=== PATIENT | male | born 1960 | race Caucasian/White ===

== ENCOUNTER 2016-12-02 16:28 | Emergency (ER) | payer OTHER ==
[~2016-12-02] VITALS: Ht 165.1 cm; Wt 65.8 kg
[~2016-12-02 16:28] MED LIST: AMLODIPINE BESY10 MG PO; ASPIRIN325 PO; ASPIRIN81 M2 PO; ATENOLOL 50MG T50 MG PO; ATIVAN0.5 MG PO; AUGMENTIN 875875 MG PO; CIPROFLOXACIN500 M1 PO; FLAGYL500 MG PO; HYDROCHLOROTH12.5 M1 PO; HYDROCHLOROTHIA25 M1 PO; LEVAQUIN 750 M750 MG PO; LISINOPRIL10 MG PO; LISINOPRIL40 MG PO; NO HOME MEDS; NOHOMEMEDICATIONS; NORCO 5-325 TA1 EACH PO; NORVASC 5 MG TAB5 MG PO; NORVASC10 MG PO; ZOCOR 20 MG TAB20 M1 PO
[2016-12-02 17:07] LABS: ABSOLUTE NEUTROPHILS 4.7 thou/uL (1.4-8.2); BASOPHILS 1.2 % (0.0-2.0); EOSINOPHILS 1.7 % (0.0-3.0); HEMATOCRIT 39.9 % (42.0-52.0); HEMOGLOBIN 13.6 gm/dL (14.0-18.0); LYMPHOCYTES 29.5 % (24.0-44.0); MCH 29.3 pg (26.0-34.0); MCHC 34.1 g/dL (28.0-37.0); MONOCYTES 5.8 % (1.0-8.0); PLATELET COUNT 227 thou/uL (150-400); POLYS 61.8 % (36.0-66.0); RBC 4.64 mil/uL (4.50-6.00); RDW 14.6 % (10.5-14.5); WBC 7.6 thou/uL (4.0-11.0)
[2016-12-02 17:10] LABS: MANUAL DIFF NO
[2016-12-02 17:14] LABS: CALCIUM 8.9 mg/dL (8.5-10.1); CREATININE 1.1 mg/dL (0.7-1.3)
[2016-12-02 17:19] LABS: ALBUMIN 4.4 g/dL (3.4-5.0); TOTAL BILIRUBIN 0.9 mg/dL (<0.1-1.0); TOTAL PROTEIN 7.8 g/dL (6.4-8.2)
[2016-12-02] MEDS ORDERED: CIPRO500 MG PO (17:58)
[2016-12-02] MEDS ORDERED: FLAGYL500 MG PO (17:58)
[2016-12-02] MEDS ORDERED: ZOFRAN ODT4 M1 PO (17:59)
[2016-12-02 18:22] VITALS: BP 145/82
== END 2016-12-02 17:59 | disposition home or self-care (01) ==
LOC: ER 16:28
PROVIDERS: Physician Assistant
DX: K57.92 Diverticulitis of intestine, part unspecified, without perforation or abscess without bleeding (principal); I10 Essential (primary) hypertension; F10.99 Alcohol use, unspecified with unspecified alcohol-induced disorder

== ENCOUNTER 2018-01-12 18:35 | Emergency (ER) | payer OTHER ==
[~2018-01-12] VITALS: Ht 167.6 cm; Wt 70.3 kg
--- NOTE | ~2018-01-12 | EKG ---
[address] [address] ELECTROCARDIOGRAM REPORT Name: BETHEL VIZCAINO [id number] Admission: 01/12/18 Attend Phys: Discharge: 01/12/18 Date of : 58 Report #: [id number] THIS REPORT FOR: //name// [facility] ED Test Date: 2018-01-12 Test Time: 18:49:22 Pat Name: ECTORJED VIZCAINO Department: Room: Gender: Legal Summer Intern: [facility] : 1960 Requested By: Brigid Campbell Order Number: [id number] MD: Uriah Sneed Measurements Intervals [place] Rate: 86 P: 37 SC: 145 QRS: 2 QRSD: 101 T: 11 QT: 373 QTc: 446 Interpretive Statements Sinus rhythm Compared to ECG 11/25/2017 20:39:48 ST (T wave) deviation no longer present Electronically Signed On 01-15-2018 14:58:47 CDT by Uriah Sneed [email or web address] <ELECTRONICALLY SIGNED> By: Uriah Sneed MD 01/15/18 1458 D: 09/1848 48 Uriah Sneed MD /SCOTT
[~2018-01-12 18:35] MED LIST changes: +ANTIVERT25 MG PO; +CIPRO500 MG PO; +COZAAR 50 MG TA50 M2 PO; +ZOCOR20 MG PO; +ZOFRAN ODT4 M1 PO
[2018-01-12 20:22] LABS: ABSOLUTE NEUTROPHILS 8.9 thou/uL (1.4-8.2); BASOPHILS 0.6 % (0.0-2.0); EOSINOPHILS 1.8 % (0.0-3.0); HEMATOCRIT 42.2 % (42.0-52.0); HEMOGLOBIN 14.4 gm/dL (14.0-18.0); LYMPHOCYTES 20.3 % (24.0-44.0); MCH 29.2 pg (26.0-34.0); MCHC 34.2 g/dL (28.0-37.0); MCV 85.4 fL (80.0-100.0); MONOCYTES 8.7 % (1.0-8.0); PLATELET COUNT 239 thou/uL (150-400); POLYS 68.6 % (36.0-66.0); RBC 4.95 mil/uL (4.50-6.00); RDW 14.3 % (10.5-14.5); WBC 12.9 thou/uL (4.0-11.0)
[2018-01-12 20:27] LABS: CALCIUM 9.1 mg/dL (8.5-10.1); CREATININE 1.5 mg/dL (0.7-1.3); POTASSIUM 3.7 mmol/L (3.5-5.1)
[2018-01-12 20:33] LABS: MAGNESIUM 2.2 mg/dL (1.8-2.4)
[2018-01-12] MEDS ORDERED: VALIUM5 MG PO (22:42)
[2018-01-12 23:02] VITALS: BP 127/74
== END 2018-01-12 23:03 | disposition home or self-care (01) ==
LOC: ER 18:35
PROVIDERS: Emergency Medicine
DX: R42 Dizziness and giddiness (principal); I10 Essential (primary) hypertension; Z88.8 Allergy status to other drugs, medicaments and biological substances

== ENCOUNTER 2020-02-27 14:53 | Emergency (ER) | payer OTHER ==
[~2020-02-27] VITALS: Ht 167.6 cm; Wt 77.1 kg
[~2020-02-27 14:53] MED LIST changes: +VALIUM5 MG PO
[2020-02-27] MEDS ORDERED: CARVEDILOL12.5 MG PO (14:57)
[2020-02-27] MEDS ORDERED: K-DUR 20 MEQ T20 MEQ PO (14:57)
[2020-02-27] MEDS ORDERED: FUROSEMIDE 40 M40 M1 PO (14:57)
[2020-02-27] MEDS ORDERED: ELIQUIS5 MG PO (14:57)
--- NOTE | 2020-02-27 15:05 | EKG ---
[facility] [place] [address] ELECTROCARDIOGRAM REPORT Name: BETHEL VIZCAINO Room #: PRE M..#: [id number] Admission: Attend Phys: Discharge: Date of : 58 Report #: [id number] THIS REPORT FOR: cc: Alex You MD,Cayetano GARCIA [facility] ~ THIS REPORT FOR: //name// [facility] ED Test Date: 2020-02-27 Test Time: 15:58:20 Pat Name: BETHEL VIZCAINO Department: Room: Gender: M Wrapper Rewinder: [facility] : 1960 Requested By: Med Hawkins Order Number: [id number] MD: Cayetano Mendoza Measurements Intervals [place] Rate: 60 P: 33 GA: 177 QRS: -5 QRSD: 105 T: -13 QT: 419 QTc: 419 Interpretive Statements Sinus rhythm/artifact Consider left atrial enlargement Abnormal R-wave progression, late transition Borderline T abnormalities, lateral leads Compared to ECG 01/12/2018 18:49:22 T-wave abnormality now present Electronically Signed On 02-27-2020 15:05:38 OCCUPATIONAL MEDICINE OFFICER by Cayetano Mendoza [email or web address] <ELECTRONICALLY SIGNED> By: Cayetano Mendoza MD, FACC 02/27/20 1505 1558 1558 Cayetano Mendoza MD, [facility] /EPI
[2020-02-27 15:51] LABS: ABSOLUTE NEUTROPHILS 4.4 thou/uL (1.4-8.2); BASOPHILS 0.8 % (0.0-2.0); HEMATOCRIT 40.9 % (42.0-52.0); HEMOGLOBIN 13.3 gm/dL (14.0-18.0); MCH 27.8 pg (26.0-34.0); MCHC 32.5 g/dL (28.0-37.0); MCV 85.5 fL (80.0-100.0); MONOCYTES 6.3 % (1.0-8.0); PLATELET COUNT 222 thou/uL (150-400); POLYS 63.9 % (36.0-66.0); RBC 4.79 mil/uL (4.50-6.00); RDW 15.5 % (10.5-14.5); WBC 6.8 thou/uL (4.0-11.0)
[2020-02-27 16:00] LABS: ANION GAP 14 mmol/L (7-16); BUN 16 mg/dL (7-18); CALCIUM 8.5 mg/dL (8.5-10.1); CHLORIDE 109 mmol/L (98-107); CO2 22 mmol/L (21-32); CREATININE 1.2 mg/dL (0.7-1.3); GLUCOSE 147 mg/dL (74-106); POTASSIUM 3.8 mmol/L (3.5-5.1); SODIUM 145 mmol/L (136-145)
[2020-02-27 16:10] LABS: ALBUMIN 4.4 g/dL (3.4-5.0); SGOT 16 U/L (15-37); SGPT 18 U/L (30-65); TOTAL BILIRUBIN 1.2 mg/dL (0.2-1.0); TOTAL PROTEIN 7.9 g/dL (6.4-8.2); TROPONIN-I <0.06 ng/mL (<0.06)
[2020-02-27 16:23] LABS: APTT 35.9 Seconds (24.5-32.8); INR 1.1; PROTIME 11.5 Seconds (9.3-11.4)
[2020-02-27] MEDS ORDERED: ROBAXIN 750 MG750 MG PO (17:09)
[2020-02-27] MEDS ORDERED: PREDNISONE 20 M20 MG PO (17:09)
[2020-02-27 17:27] VITALS: BP 129/70
== END 2020-02-27 17:25 | disposition home or self-care (01) ==
LOC: ER 14:53
PROVIDERS: Emergency Medicine
DX: R07.89 Other chest pain (principal); I48.20 Chronic atrial fibrillation, unspecified; M25.512 Pain in left shoulder; I10 Essential (primary) hypertension; Z86.73 Personal history of transient ischemic attack (TIA), and cerebral infarction without residual deficits; Z79.899 Other long term (current) drug therapy; Z88.8 Allergy status to other drugs, medicaments and biological substances

== ENCOUNTER 2021-05-16 09:53 | Inpatient (IN) | payer OTHER ==
[~2021-05-16] VITALS: Ht 167.6 cm; Wt 81.6 kg
[~2021-05-16 09:53] MED LIST changes: +CARVEDILOL12.5 MG PO; +ELIQUIS5 MG PO; +FUROSEMIDE 40 M40 M1 PO; +K-DUR 20 MEQ T20 MEQ PO; +PREDNISONE 20 M20 MG PO; +ROBAXIN 750 MG750 MG PO
[2021-05-16 10:05] VITALS: BP 160/103
[2021-05-16 10:28] LABS: ABSOLUTE NEUTROPHILS 7.3 thou/uL (1.4-8.2); BASOPHILS 0.9 % (0.0-2.0); EOSINOPHILS 1.2 % (0.0-3.0); HEMATOCRIT 45.4 % (42.0-52.0); HEMOGLOBIN 14.8 gm/dL (14.0-18.0); LYMPHOCYTES 13.9 % (24.0-44.0); MCH 28.7 pg (26.0-34.0); MCHC 32.6 g/dL (28.0-37.0); MONOCYTES 6.6 % (1.0-8.0); PLATELET COUNT 234 thou/uL (150-400); POLYS 77.4 % (36.0-66.0); RBC 5.16 mil/uL (4.50-6.00); RDW 15.4 % (10.5-14.5); WBC 9.5 thou/uL (4.0-11.0)
[2021-05-16 10:42] LABS: CALCIUM 8.8 mg/dL (8.5-10.1); CREATININE 0.8 mg/dL (0.7-1.3); POTASSIUM 4.5 mmol/L (3.5-5.1)
[2021-05-16 10:53] LABS: ALBUMIN 4.7 g/dL (3.4-5.0); TOTAL BILIRUBIN 1.1 mg/dL (0.2-1.0); TOTAL PROTEIN 7.7 g/dL (6.4-8.2)
--- NOTE | 2021-05-16 12:22 | EKG ---
[place] [address] [address] [facility] [place] [address] ELECTROCARDIOGRAM REPORT Name: BETHEL VIZCAINO Room #: 170-2 ADM IN M.R.#: [id number] Admission: 05/16/21 Attend Phys: Bienvenido Lagos Discharge: Date of : 58 Report #: [id number] [facility] ED Test Date: 2021-05-16 Test Time: 10:03:44 Pat Name: BETHEL VIZCAINO Department: Room: 170 Gender: M [employer]: LEONOR : 1960 Requested By: Prachi Norman Order Number: [id number] MD: Cayetano Mendoza Measurements Intervals [place] Rate: 62 P: 26 NM: 157 QRS: 2 QRSD: 101 T: 11 QT: 402 QTc: 409 Interpretive Statements Sinus rhythm Compared to ECG 02/27/2020 15:58:20 T-wave abnormality no longer present Electronically Signed On 05-16-2021 12:22:26 DOBBY LOOM FIXER by Cayetano Mendoza [email or web address] <ELECTRONICALLY SIGNED> By: Cayetano Mendoza MD, [facility] 05/16/21 1222 1003 1003 Cayetano Mendoza MD, FACC /EPI
[2021-05-16 14:27] VITALS: BP 125/84
[2021-05-16 14:46] VITALS: BP 121/85
== END 2021-05-16 14:47 | disposition home or self-care (01) | DRG 206 ==
LOC: ER 09:53 → EROBS 11:47
PROVIDERS: Emergency Medicine; ADMIT Hospitalist; ATTEND Hospitalist
DX: M94.0 Chondrocostal junction syndrome [Tietze] (principal); I48.0 Paroxysmal atrial fibrillation; I10 Essential (primary) hypertension; I16.0 Hypertensive urgency; E78.5 Hyperlipidemia, unspecified; Z20.822 Contact with and (suspected) exposure to COVID-19; Z79.899 Other long term (current) drug therapy; Z88.8 Allergy status to other drugs, medicaments and biological substances; Z86.73 Personal history of transient ischemic attack (TIA), and cerebral infarction without residual deficits; Z79.01 Long term (current) use of anticoagulants